=== PATIENT | male | born 1970 | race Caucasian/White ===

== ENCOUNTER 2017-01-19 13:09 | Emergency (ER) | payer MEDICAID ==
[2017-01-19] MEDS ORDERED: NS 1,000 ML IV ONE (13:16)
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
[2017-01-19] MEDS ORDERED: levETIRAcetam 1,000 MG in NS 100 ML IV ONE (13:21)
[2017-01-19 13:23] VITALS: TEMP 98.4
[2017-01-19 13:36] LABS: % IMMATURE GRANULYOCYTES 0.7 % (0.0-1.1); ABSOLUTE IMMATURE GRANULOCYTES 0.07 10^3/uL (0.00-0.10); ADD DIFF? NO; ADD MORPH? NO; ADD SCAN? NO; ATYPICAL LYMPHOCYTE FLAG 0 (0-99); FRAGMENT RBC FLAG 0 (0-99); HEMATOCRIT 40.9 % (40.0-51.0); HEMOGLOBIN 14.2 g/dL (13.7-17.5); LEFT SHIFT FLG 0 (0-99); LIPEMIA HEMOLYSIS FLAG 90 (0-99); MEAN CELL HEMOGLOBIN 33.8 pg (27.9-34.1); MEAN CELL HEMOGLOBIN CONCENTR. 34.7 g/dL (32.4-36.7); MEAN CELL VOLUME 97.4 fL (81.5-99.8); MEAN PLATELET VOLUME 10.7 fL (8.7-11.7); PLATELET CLUMPS FLAG 0 (0-99); PLATELET COUNT 219 10^3/uL (150-400); RED CELL DISTRIBUTION WIDTH 13.4 % (11.5-15.2)
[2017-01-19 13:59] LABS: ANION GAP 16 mEq/L (8-16); CARBON DIOXIDE 23 mEq/l (22-31); CHLORIDE 104 mEq/L (97-110); CREATININE 0.9 mg/dL (0.7-1.3); ETHANOL SERUM 239 mg/dL (0-10); GLOMERULAR FILTRATION RATE > 60; GLUCOSE 106 mg/dL (70-100); SODIUM 143 mEq/L (134-144)
[2017-01-19 14:35] VITALS: RESP 16
[2017-01-19 16:58] VITALS: BP 103/64; PULSE 83; O2SAT 94
== END 2017-01-19 17:28 | disposition home or self-care (01) ==
LOC: EDUNIT#
DX: F10.129 Alcohol abuse with intoxication, unspecified (principal); J45.909 Unspecified asthma, uncomplicated; F17.200 Nicotine dependence, unspecified, uncomplicated
CPT/HCPCS: 96365; G0480; J1953

== ENCOUNTER 2017-01-19 17:59 | Emergency (ER) | payer MEDICAID ==
[2017-01-19] MEDS ORDERED: NS 1,000 ML IV ONE ×2 (18:02)
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
[2017-01-19 18:28] VITALS: TEMP 97.7
[2017-01-19 18:28] LABS: % IMMATURE GRANULYOCYTES 0.7 % (0.0-1.1); ABSOLUTE IMMATURE GRANULOCYTES 0.06 10^3/uL (0.00-0.10); ADD DIFF? NO; ADD MORPH? NO; ADD SCAN? NO; ATYPICAL LYMPHOCYTE FLAG 40 (0-99); FRAGMENT RBC FLAG 0 (0-99); HEMATOCRIT 40.5 % (40.0-51.0); HEMOGLOBIN 13.9 g/dL (13.7-17.5); LEFT SHIFT FLG 0 (0-99); LIPEMIA HEMOLYSIS FLAG 90 (0-99); MEAN CELL HEMOGLOBIN 33.7 pg (27.9-34.1); MEAN CELL HEMOGLOBIN CONCENTR. 34.3 g/dL (32.4-36.7); MEAN CELL VOLUME 98.1 fL (81.5-99.8); MEAN PLATELET VOLUME 10.5 fL (8.7-11.7); PLATELET CLUMPS FLAG 10 (0-99); PLATELET COUNT 194 10^3/uL (150-400); RED BLOOD CELL COUNT 4.13 10^6/uL (4.40-6.38); RED CELL DISTRIBUTION WIDTH 13.3 % (11.5-15.2)
[2017-01-19 18:50] LABS: ANION GAP 13 mEq/L (8-16); CALCIUM 8.6 mg/dL (8.5-10.4); CARBON DIOXIDE 24 mEq/l (22-31); CHLORIDE 105 mEq/L (97-110); CREATININE 0.8 mg/dL (0.7-1.3); ETHANOL SERUM 160 mg/dL (0-10); GLOMERULAR FILTRATION RATE > 60; GLUCOSE 91 mg/dL (70-100); POTASSIUM 4.1 mEq/L (3.5-5.2); SODIUM 142 mEq/L (134-144)
[2017-01-19 21:40] VITALS: BP 120/66; PULSE 64; RESP 14; O2SAT 94
== END 2017-01-19 22:20 | disposition home or self-care (01) ==
LOC: EDBD 17:59 → MERGE 17:59
DX: S09.90XA Unspecified injury of head, initial encounter (principal); F10.120 Alcohol abuse with intoxication, uncomplicated; W19.XXXA Unspecified fall, initial encounter
CPT/HCPCS: 80305; 82947-QW; 96365; G0480; J1953

== ENCOUNTER 2017-01-20 00:25 | Emergency (ER) | payer MEDICAID ==
--- NOTE | 2017-01-20 00:38 | EDPHY ---
H & P Time Seen by Provider: 01/20/17 00:32 HPI/ROS: Chief Complaint: Found down, altered mental status HPI: 46-year-old male who is being brought into the emergency department for the 3rd time in 24 hours. Patient is brought in tonight after being found down outside of [place] bus station. Patient was seen walking with a blank stare on his face. Bus station staff and went outside and found the patient lying on the sidewalk. Patient was minimally responsive. On EMS arrival the patient responded to painful stimuli and became combative and then became somnolent again. It was noted that he had a cervical collar in place. Patient has had a recent C4 spinous and lamina fracture for which she is wearing CT collar. He was initially seen yesterday afternoon after being found down and combative. He had a CT scan of his head and neck at that time was noted to have an alcohol level in 200. Patient has a history of alcoholism and admitted to been drinking. He also has a history of seizures and was admitted to this hospital in November with possible diagnosis new onset seizure versus alcohol withdrawal seizure. He is supposed to be taking Keppra but apparently has not been doing so. When he was seen earlier today by Dr. Sheridan he was given and IV Keppra load. Patient was noted to be up walking around the emergency department and then he eloped. Patient was then down found down again later in the evening at a bus stop and brought in for evaluation. Patient had a repeat scan of his head and neck which were unchanged. Blood alcohol at that time was noted to be 160. Again he was up walking around. Plan was to be to discharge in the care of his sister but the patient again eloped from the emergency department. Patient is not speaking to me now. Further history is unobtainable at this time. Unobtainable secondary the patient's altered mental status PMH: C4 spinous process and lamina fracture, alcoholism, Social History: No smoking, no alcohol, no recreational drug use Family History: non-contributory Physical Exam: Gen: Somnolent, responding to painful stimuli, maintaining airway, smells of alcohol HEENT: contusions right forehead, this was noted in his prior presentation. Nose: no rhinorrhea Eyes: PERRLA, EOMI Mouth: Moist mucosa Neck: Cervical collar in place, no abnormalities noted Chest: nontender, lungs clear to auscultation Heart: S1, S2 normal, no murmur Abd: Soft, non-tender, no guarding Back: no CVA tenderness, no midline tenderness Ext: no edema, non-tender Skin: no rash Neuro: CN II-XII intact, Sensation grossly intact, Strength 5/5 in bilateral upper and lower extremities - Personal History Tetanus Vaccine Date: 2010 - Medical/Surgical History Hx Asthma: Yes Hx Chronic Respiratory Disease: No Hx Diabetes: No Hx Cardiac Disease: No Hx Renal Disease: No Hx Cirrhosis: No Hx Alcoholism: No Hx HIV/AIDS: No Hx Splenectomy or Spleen Trauma: No Other PMH: Alcoholism, seizure disorder, GERD. Asthma. bilateral tib-fib hardware. ETOH (sober 1year). APPY. BLEEDING ULCER - Social History Smoking Status: Current every day smoker Constitutional: Initial Vital Signs Temperature (C) 36.0 C 01/20/17 00:33 Heart Rate 53 L 01/20/17 00:33 Respiratory Rate 16 01/20/17 00:33 Blood Pressure 128/73 H 01/20/17 00:33 O2 Sat (%) 98 01/20/17 00:33 O2 Delivery Mode Room Air O2 (L/minute) 3 Allergies/Adverse Reactions: acetaminophen [From Vicodin] Allergy (Verified 11/17/14 14:10) Vomiting hydrocodone bitartrate [From Vicodin] Allergy (Verified 11/17/14 13:48) venom-honey bee [bee venom (honey bee)] Allergy (Verified 02/13/16 11:25) Home Medications: Medication Instructions Recorded Albuterol Sulfate [Albuterol 2 puffs IH Q4 PRN 11/17/14 Inhaler Hfa] Omeprazole [Prilosec 20 mg] 20 mg PO DAILY 06/05/15 AZITHROMYCIN [Z-PACK] 250 mg PO DAILY #1 packet 07/18/16 predniSONE 20 mg PO DAILY 4 Days 07/18/16 LEVETIRACETAM [Keppra 1000 mg] 1,000 mg PO BID #60 tab 01/20/17 Medical Decision Making - Data Points Laboratory Results: 01/20/17 00:03 Ethyl Alcohol 31 mg/dL H mg/dL (0-10) Medications Given: Discontinued Medications Levetiracetam (Keppra) 500 mg PO EDNOW ONE Stop: 01/20/17 01:55 Last Admin: 01/20/17 02:16 Dose: 500 mg Departure - Departure Disposition: Home, Routine, Self-Care Clinical Impression: Seizure, Altered mental status Condition: Good Instructions: Epilepsy (ED) Additional Instructions: Patient you take your seizure medications twice a day without fail. Please avoid drinking alcohol or using other substances. Follow up with primary care doctor in 2-3 days for re-evaluation. Referrals: Patient,NotPresent [Unknown] - As per Instructions [facility],. [Clinic] - As per Instructions Prescriptions: LEVETIRACETAM [Keppra 1000 mg] 1,000 mg PO BID #60 tab
[2017-01-20 01:16] LABS: ETHANOL SERUM 31 mg/dL (0-10)
[2017-01-20] MEDS ORDERED: levETIRAcetam 500 MG TAB PO ONE (01:54)
[2017-01-20 04:18] VITALS: PULSE 52
[2017-01-20 06:07] VITALS: BP 142/85; RESP 20; TEMP 97.7; O2SAT 93
== END 2017-01-20 06:07 | disposition home or self-care (01) ==
LOC: EDUNIT#
DX: G40.909 Epilepsy, unspecified, not intractable, without status epilepticus (principal); J45.909 Unspecified asthma, uncomplicated; F17.200 Nicotine dependence, unspecified, uncomplicated
CPT/HCPCS: G0480